=== PATIENT | male | born 1950 | race African-American/Black ===

== ENCOUNTER 2016-12-30 08:34 | Emergency (ER) | payer MEDICARE, MEDICAID ==
[~2016-12-30] VITALS: Ht 182.9 cm; Wt 83.9 kg
[2016-12-30] MEDS ORDERED: NKM (08:55)
[2016-12-30 09:14] VITALS: BP 128/81
[2016-12-30] MEDS ORDERED: Clindamycin 900mg 50 ML IVPB ONE (09:15)
--- NOTE | 2016-12-30 09:28 | Emergency Room Report ---
History of Present Illness General Chief Complaint: Toothache Source: Patient Present Illness HPI Patient states that he has had an ongoing issue with a tooth infection. He states that the symptoms have come and gone previously. He states it usually goes on antibiotics and the symptoms improved. However, he states that over the past 3 days he has had worsening pain and swelling in his right jaw and face. He denies fever or chills. He denies nausea or vomiting. He has no other complaints. Allergies: Coded Allergies: PENICILLINS (Verified Allergy, Severe, Rash, 12/30/16) Patient History Past Medical History: none, see triage record Social History: Reports: alcohol use - ETOH 1 beer a few times/week, smoking, Denies: drug use Reviewed Nursing Documentation: PMH: Agreed, PSxH: Agreed Nursing Documentation-PMH Past Medical History: No Stated History Review of Systems All Other Systems: negative except mentioned in HPI Physical Exam Vital Signs Date Time Temp Pulse Resp B/P Pulse Ox O2 Delivery O2 Flow Rate FiO2 12/30/16 08:50 98.4 88 18 128/81 96 Room Air Sp02 EP Interpretation: reviewed, normal General Appearance: no apparent distress, alert, GCS 15, non-toxic Head: normocephalic, atraumatic Eyes: bilateral eye PERRL, bilateral eye normal inspection ENT: hearing grossly normal, normal pharynx, no angioedema, normal voice, uvula midline, other - R. lower face/chin with swelling and induration with an associated firm area concerning for abscess. Neck: full range of motion, supple/symm/no masses Respiratory: chest non-tender, lungs clear, normal breath sounds, speaking full sentences Cardiovascular #1: regular rate, rhythm, no edema Gastrointestinal: normal bowel sounds, non tender, soft, non-distended, no guarding, no rebound Rectal: deferred Musculoskeletal: back normal, gait/station normal, normal range of motion, non- tender Neurologic: alert, oriented x3, responsive, motor strength/tone normal, sensory intact, speech normal Psychiatric: judgement/insight normal, memory normal, mood/affect normal, no suicidal/homicidal ideation Skin: normal color, warm/dry, well hydrated, other - See ENT Medical Decision Making Diagnostic Impression: Primary Impression: Facial infection Additional Impression: Dental infection ER Course This patient has an odontogenic infection of the face. On physical exam I was concerned that this patient has a facial abscess, so I did obtain a CT of the face with contrast which showed no evidence of facial abscess. The patient was given IV clindamycin and basic labs were obtained which showed no significant abnormality. Given the patient has a facial infection that progressed rapidly, I felt that I should admit this patient for further IV antibiotics and monitoring. The patient remained stable during his ED course. CT/MRI/US Diagnostic Results CT/MRI/US Diagnostic Results : Imaging Test Ordered: CT max/facial w/ contrast. Impression Facial cellulitis, please see official report. Last Vital Signs Date Time Temp Pulse Resp B/P Pulse Ox O2 Delivery O2 Flow Rate FiO2 12/30/16 09:14 98.4 18 128/81 96 Room Air 12/30/16 08:50 88 Disposition: ADMITTED INPATIENT Condition: Stable Referrals: NON PHYSICIAN (PCP) NAVJOT WEAVER D.O. December 30, 2016 09:28
[2016-12-30 10:06] LABS: LYMPHOCYTES % (AUTO) 13.4 % (20.0-45.0); MEAN CORPUSCULAR HEMOGLOBIN 29.4 PG (27.0-31.0); MEAN CORPUSCULAR HGB CONC 32.7 G/DL (32.0-36.0); MEAN CORPUSCULAR VOLUME 90 FL (80-99); MEAN PLATELET VOLUME 10.2 FL (6.5-10.1); MONOCYTES % (AUTO) 5.3 % (1.0-10.0); NEUTROPHILS % (AUTO) 79.4 % (45.0-75.0); PLATELET COUNT 215 K/UL (150-450); RED BLOOD COUNT 5.43 M/UL (4.70-6.10); RED CELL DISTRIBUTION WIDTH 12.3 % (11.6-14.8); WHITE BLOOD COUNT 13.3 K/UL (4.8-10.8)
[2016-12-30 11:09] LABS: ALANINE AMINOTRANSFERASE 14 U/L (3-41); ALBUMIN/GLOBULIN RATIO 1.2 (1.0-2.7); ANION GAP 14 (5-15); ASPARTATE AMINO TRANSFERASE 15 U/L (5-40); CALCIUM 8.8 mg/dL (8.6-10.2); CARBON DIOXIDE 26 mEQ/L (20-30); CHLORIDE 101 mEQ/L (98-107); GLOMERULAR FILTRATION RATE > 60 mL/min (>60); HEMOLYSIS 15; POTASSIUM 4.1 mEQ/L (3.4-4.9); SODIUM 141 mEQ/L (135-145); TOTAL PROTEIN 6.6 g/dL (6.6-8.7)
[2016-12-30] MEDS ORDERED: Norco 5mg/325mg tab ORAL ONE (11:15)
[2016-12-30] MEDS ORDERED: CLINDAMYCIN HC300 MG ORAL (13:29)
[2016-12-30 13:32] VITALS: BP 133/79
[2016-12-30 13:35] VITALS: BP 133/79
--- NOTE | 2016-12-30 13:46 | Diagnostic Imaging Report ---
Indications: Progressive pain and swelling right-sided face and jaw for 3 days, history of same treated with antibiotics Technique: Continuous helical CT imaging of the face was performed with automatic exposure control following intravenous administration of nonionic contrast, on a Siemens sensation [address] scanner. Axial and coronal images were reconstructed at 3 mm slice thickness. CTDI volume(s): 28 mGy Total DLP: 622 mGy-cm Findings: Comparison: None The crown of the right lower canine is partially destroyed, defect filled with fluid/soft tissue density and gas. A thin rim of lucency surrounds the apex of this tooth as well as the apices of several adjacent teeth. No reji bone destruction is demonstrated. The overlying soft tissues are swollen. The swelling extends over the genu of the mandible. No associated gas or circumscribed fluid collection. Remaining soft tissues are unremarkable. Multiple upper teeth are missing. Polypoid soft tissue density right sphenoid sinus. Mucoperiosteal thickening bilateral posterior ethmoid sinuses, right frontal, left maxillary sinus. Bilateral mastoid air cells are poorly developed, partially opacified. Bilateral orbital anatomy intact. IMPRESSION: Dental caries involving right canine. Periapical lucency is similar to that involving several other teeth, so presence of dental abscess is questionable. Overlying soft tissue swelling compatible with cellulitis. No associated identifiable abscess. Paranasal sinusitis with right sphenoid polyp versus retention cyst
== END 2016-12-30 13:51 | disposition left against medical advice (07) ==
LOC: EMR 09:17 → CANBEDREQ 13:45 → EMR 13:51
DX: K04.7 Periapical abscess without sinus (principal); L03.211 Cellulitis of face; Z88.0 Allergy status to penicillin; F17.200 Nicotine dependence, unspecified, uncomplicated
CPT/HCPCS: 36415; 70487; 80053; 85025; 96374; 96375; 99284; Q9967; S0077